=== PATIENT | male | born 1990 | race Caucasian/White ===

== ENCOUNTER → 2016-11-25 | Outpatient (CLI) | payer OTHER ==
--- NOTE | 2016-11-25 15:35 | DIAGNOSTIC IMAGING REPORT ---
LEFT FIRST TOE RADIOGRAPHS CLINICAL HISTORY: INJURY OF LEFT GREAT TOE COMPARISON: None FINDINGS: There is an acute mildly displaced 4 mm avulsed bone fragment along the dorsal aspect of the base of the distal phalanx of the left first toe. There are soft tissue swelling of the left first toe. There are no additional fractures. IMPRESSION: Minimally displaced acute avulsion fracture of the dorsal base of the distal phalanx of the left first toe. This favors a hyperflexion injury. Electronically signed by: Iker Estevez M.D. 11/25/2016 3:34 PM Dictated Date/Time: 11/25/2016 3:32 PM
== END | disposition home or self-care (01) ==
LOC: C.RADBC 15:14
PROVIDERS: ATTEND Nurse Practitioner
DX: R58 Hemorrhage, not elsewhere classified (principal); S92.422A Displaced fracture of distal phalanx of left great toe, initial encounter for closed fracture; X58.XXXA Exposure to other specified factors, initial encounter